=== PATIENT | female | born 2000 | race Caucasian/White ===

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

== ENCOUNTER 2021-09-04 09:30 | Outpatient (RCR) | payer OTHER, SELFPAY ==
--- NOTE | 2021-08-07 11:53 | HP.OTEVAL_ITS ---
Patient's Visit Information VIDAL HURLEY is a 21 year old F, referred to Occupational Therapy by BRANDON RIBERA, with a diagnosis of Chronic pain of right wrist. Date of Evaluation: 08/07/21 Occupational Therapist: Angle Daniel - Subjective Pt. is a 21 y/o female who has been having chronic wrist pain for 2 years. Pt. reporting stating she has been seeing a switchboard operator receptionist and has tested negative for inflammatory joint diseases, she has synovitis. She also reports she has lost strength & endurance to do daily tasks of a college student such as writing and difficulty with typing. She also has difficulty playing piano. Pt. would like to return to [facility]. This evaluation has been observed and approved by Angle Daniel OTR/L; - ADLs Comments: No difficulties Comments: No difficulties Comments: No difficulties Comments: No difficulties Comments: No difficulties Comments: No difficulties Kitchen: Peel fruits & vegetables, Lift gallon of milk Comments: No difficulties Comments: No yard work to do Miscellaneous: Write, Use computer keyboard, Play musical instrument, Do crafts Comments: Pt. stating she has difficulties with handwriting/typing as her current occupation is college student. - Pain Right Hand 1 - Objective Pt. reports wearing a wrist splint everyday all day. There is a small nodule on dorsal side of hand that is observable. Pt. reports that the nodule gets bigger and smaller, but never goes away. - ROM Shoulder: B WFL Elbow: B WFL Forearm: B WFL Wrist: L flex 60* ext 55*, R flex 50* ext 35* CMC: B WFL MP: B WFL IP: B WFL MP: B WFL PIP: B WFL DIP: B WFL ROM Comments: Her right wrist has decreased wrist extension compared to Left wrist and 10* difference in wrist flexion. - Strength Shoulder: Demo'd good strength through observation Elbow: Demo'd good strength Medical Office Technologist: L 60# R50# Lateral Pinch: L 12#, R 10# Tripod Pinch: L 12#, R 12# Tip-to-Tip Pinch: L & R 8# Strength Comments: Right regulatory affairs internship strength is 10# less than Left. - Edema Other: observed no swelling in RUE - Sensation Stereognosis: Normal - Right, Normal - Left Kinesthesia: Normal - Right, Normal - Left Proprioception: Normal - Right, Normal - Left Sensation Comments: Pt. reports she has not had any sensation changes in hands/fingers related to hot/cold and negative for having numbness and tingling. - Transfers Transfers: Pt. independent with functional mobility. - Quick DASH-Disab of Arm,Shoulder& Hand Quick DASH Score: 36.8400 - Goals Goal:: Pt. will increase R regulatory affairs internship strength to 60# to increase R hand use with carrying bookbag, laundry, etc. by dc. Pt. will increase UB strength for ADL,IADL tasks by dc. Goal:: Pt. will increase R wrist ROM by 5-10 degrees to increase functional use with handwriting and playing piano by dc. Goal:: Pt. will report using alternatives for pain treatment during flareups with good outcome by dc. Goal:: Pt. will report decreased use of wrist splint with metal stay by dc. Goal:: Pt. will demonstrate good body mechanics with transporting heavy items such as laundry basket & book bag by dc - Rehabilitation General Assessment: Pt. has had right wrist pain for 2 years. She has seen a switchboard operator receptionist and has been cleared of inflammatory joint disease. She has mild limitation with Right wrist flexion/extension. She also has decreased regulatory affairs internship strength. These deficits have affected her piano skills, handwriting and other daily task difficulties (opening jars). Educated pt. on HEP and provided pt. with HEP. Reviewed alternatives for flare-ups. Rehabilitation Potential: Good - Anticipated Interventions A/AAROM/PROM, Strengthening, Ergonomic Education, Home Program, Other - Visit Plan Frequency: 1-2x /Week Duration: 6 Weeks TEXT: Thank you for the opportunity to evaluate your patient. For Medicare and Medicare HMO plans, please review the plan of care and approve it. It will need to be FAXED BACK to us at [phone] for Medicare purposes. Please let me know if there are questions or concerns regarding this plan of care. Physician Signature: Date:
--- NOTE | 2021-09-06 08:35 | HP.OTDCSUM ---
It has been my pleasure to treat VIDAL HURLEY under orders from BRANDON RIBERA, for the diagnosis of Chronic pain of right wrist for a total of 8 visit(s). Please see the following information for a summary of their discharge status. % Improvement: 25 Objective/Function: R wrist 45*/50*. R office system analyst 60# was 50# on eval. UB strength Fair +. She has participated in 8 skilled OT sessions of strengthening, and stretching. Educated pt. on ergonomic positioning. Patient Goals: Regain Mobility, Regain Strength, Decrease Pain, Improve Fine Motor Skills, Use Hand/Wrist/Arm Normally Again, Resume Hobbies, Other Other: Writing, piano and typing Goal:: Pt. will increase R office system analyst strength to 60# to increase R hand use with carrying bookbag, laundry, etc. by dc. Pt. will increase UB strength for ADL,IADL tasks by dc. Goal:: Pt. will increase R wrist ROM by 5-10 degrees to increase functional use with handwriting and playing piano by dc. Goal:: Pt. will report using alternatives for pain treatment during flareups with good outcome by dc. Goal:: Pt. will report decreased use of wrist splint with metal stay by dc. Goal:: Pt. will demonstrate good body mechanics with transporting heavy items such as laundry basket & book bag by dc Plan: DC this date as pt. is returning to [place]. Discharge Comments: Pt. reported 25% improvement, Quick dash 20.452. She has met all goals but continues to have pain in wrist with activity. R wrist 45*/50* was 35*/50* on eval. R office system analyst 60# was 50# on eval. UB strength Fair + through shoulders. she has reported keeping the metal stay out of soft splint. She has participated in 8 skilled OT sessions of strengthening, and stretching. Educated pt. on ergonomic positioning and adaptive methods for typing. pt returning home for summer- will cont. with HEP pt agrees to D/C If there are questions or concerns regarding this patient's occupational therapy, please fell free to call me at [phone]. Thank you for the referral of this patient. Sincerely, Sarah Mccauley, OTR/L, CHT
== END 2021-09-04 19:00 | disposition home or self-care (01) ==
LOC: OT 09:30
DX: M25.531 Pain in right wrist (principal); G89.29 Other chronic pain
CPT/HCPCS: 97110; 97165; 97530